=== PATIENT | male | born 1990 | race Caucasian/White ===

== ENCOUNTER 2018-02-12 06:59 | Emergency (ER) | payer BC ==
[~2018-02-12] VITALS: Ht 170.2 cm; Wt 72.6 kg
[2018-02-12] MEDS ORDERED: PEPCID20 MG PO (07:36)
[2018-02-12] MEDS ORDERED: PREDNISONE 20 M20 MG PO (07:36)
[2018-02-12 07:56] VITALS: BP 121/72
== END 2018-02-12 07:59 | disposition home or self-care (01) ==
LOC: ER 06:59
DX: L50.9 Urticaria, unspecified (principal)

== ENCOUNTER 2019-10-28 12:06 | Emergency (ER) | payer BC ==
[~2019-10-28] VITALS: Ht 170.2 cm; Wt 72.6 kg
[~2019-10-28 12:06] MED LIST: PEPCID20 MG PO; PREDNISONE 20 M20 MG PO
[2019-10-28 13:00] LABS: ABSOLUTE NEUTROPHILS 2.7 thou/uL (1.4-8.2); BASOPHILS 0.4 % (0.0-2.0); EOSINOPHILS 0.5 % (0.0-3.0); HEMATOCRIT 49.5 % (42.0-52.0); HEMOGLOBIN 16.6 gm/dL (14.0-18.0); MCH 30.7 pg (26.0-34.0); MCHC 33.4 g/dL (28.0-37.0); MCV 91.7 fL (80.0-100.0); MONOCYTES 10.6 % (1.0-8.0); PLATELET COUNT 179 thou/uL (150-400); POLYS 52.5 % (36.0-66.0); RDW 12.5 % (10.5-14.5); WBC 5.1 thou/uL (4.0-11.0)
[2019-10-28 13:14] LABS: ANION GAP 7 mmol/L (7-16); BUN 13 mg/dL (7-18); CALCIUM 9.3 mg/dL (8.5-10.1); CHLORIDE 99 mmol/L (98-107); CO2 32 mmol/L (21-32); CREATININE 0.9 mg/dL (0.7-1.3); GLUCOSE 92 mg/dL (74-106); POTASSIUM 3.7 mmol/L (3.5-5.1); SODIUM 138 mmol/L (136-145)
[2019-10-28 13:24] LABS: ALBUMIN 4.9 g/dL (3.4-5.0); MAGNESIUM 1.9 mg/dL (1.8-2.4); SGOT 18 U/L (15-37); SGPT 39 U/L (30-65); TOTAL BILIRUBIN 0.5 mg/dL (<0.1-1.0); TOTAL PROTEIN 8.5 g/dL (6.4-8.2); TROPONIN-I <0.06 ng/mL (<0.06)
[2019-10-28 14:01] LABS: APTT 33.7 Seconds (24.5-32.8); D-DIMER 0.19 ug/mLFEU (0.19-0.50); PROTIME 10.1 Seconds (9.3-11.4)
[2019-10-28] MEDS ORDERED: DOXYCYCLINE 10100 MG PO (14:09)
[2019-10-28] MEDS ORDERED: TESSALON PERLE100 MG PO (14:09)
[2019-10-28 14:29] VITALS: BP 119/87
--- NOTE | 2019-10-30 08:31 | EKG ---
[facility] [place] [address] ELECTROCARDIOGRAM REPORT Name: JENNIFER BOGGS Room #: DEP [facility]#: [id number] Admission: 10/28/19 Attend Phys: Discharge: 10/28/19 Date of : [birth year] Report #: [id number] THIS REPORT FOR: cc: ELLI - No family physician/PCP ELLI - No family physician/PCP Derek Beatty MD [facility] THIS REPORT FOR: //name// [facility] ED Test Date: 2019-10-28 Test Time: 12:14:42 Pat Name: JENNIFER BOGGS Department: Room: Gender: Exchange Floor Manager: [facility] : 1990 Requested By: Angel Matos Order Number: [id number] MD: Derek Beatty Measurements Intervals [place] Rate: 75 P: -34 MA: 168 QRS: 268 QRSD: 88 T: 54 QT: 371 QTc: 415 Interpretive Statements Sinus rhythm Right superior axis No previous ECG available for comparison Electronically Signed On 10-30-2019 8:30:58 [employer] by Derek Beatty [email or web address] <ELECTRONICALLY SIGNED> By: Derek Beatty MD, FAC 10/30/1929 13 13 Derek Beatty MD, [facility] /EPI
== END 2019-10-28 14:37 | disposition home or self-care (01) ==
LOC: ER 12:06
PROVIDERS: Emergency Medicine
DX: J20.9 Acute bronchitis, unspecified (principal); R04.2 Hemoptysis; F17.210 Nicotine dependence, cigarettes, uncomplicated